=== PATIENT | female | born 1965 | race Caucasian/White ===

== ENCOUNTER 2023-10-29 11:17 | Emergency (ER) | payer OTHER, BC ==
[~2023-10-29] VITALS: Ht 165.1 cm; Wt 127.3 kg
[2023-10-29 11:43] VITALS: TEMP 98.8
[2023-10-29] MEDS ORDERED: iohexol 300mg/ml 100ml inj. ONE (11:58)
[2023-10-29] MEDS: morphine 2 MG/ML inj. syringe IV PRN (12:05)
[2023-10-29] MEDS: normal saline 1000ml 1,000 ML IV ONE (12:05)
[2023-10-29] MEDS: normal saline 1000ML IV soln IVB ONE (12:06)
[2023-10-29 12:41] LABS: BASOPHILS # (AUTO) 0.1 X10'3 (0-0.2); EOSINOPHILS # (AUTO) 0.1 X10'3 (0-0.9); EOSINOPHILS % (AUTO) 1.3 % (0-6); HEMATOCRIT 43.7 % (35.0-45.0); HEMOGLOBIN 14.8 g/dl (12.0-16.0); LYMPHOCYTES # (AUTO) 1.7 X10'3 (1.1-4.8); LYMPHOCYTES % (AUTO) 21.1 % (21-51); MEAN CORPUSCULAR HEMOGLOBIN 28.3 PG (27.0-31.0); MEAN CORPUSCULAR HGB CONC 33.9 g/dL (33.0-36.5); MEAN CORPUSCULAR VOLUME 83.5 FL (78-98); MEAN PLATELET VOLUME 9.3 FL (7.4-10.4); MONOCYTES # (AUTO) 0.3 X10'3 (0-0.9); MONOCYTES % (AUTO) 3.5 % (2-12); NEUTROPHILS # (AUTO) 5.8 X10'3 (1.8-7.7); NEUTROPHILS % (AUTO) 73.1 % (42-75); PLATELET COUNT 208 X10'3 (140-440); RED BLOOD COUNT 5.23 X10'6 (4.20-5.60)
[2023-10-29 12:51] LABS: APTT 27 SECONDS (22-32); PROTHROMBIN TIME 10.7 SECONDS (9.0-12.0)
[2023-10-29 12:57] LABS: ALBUMIN 3.6 G/DL (3.4-5.0); ANION GAP 7 (8-16); BLOOD UREA NITROGEN 14 MG/DL (7-18); BUN/CREATININE RATIO 17.3 (10.0-20.0); CALCIUM 9.6 MG/DL (8.5-10.1); CHLORIDE 104 MMOL/L (99-107); CREATININE 0.81 MG/DL (0.40-0.90); ETHANOL < 10 MG/DL (<10); GLUCOSE 148 MG/DL (70-104); LIPASE 29 U/L (16-77); SODIUM 140 MMOL/L (135-145); TOTAL CARBON DIOXIDE 28.6 MMOL/L (24-32); eCRCL 69 ML/MIN; eGFR 73 ML/MIN
[2023-10-29 12:58] LABS: POTASSIUM 4.4 MMOL/L (3.5-5.1)
[2023-10-29 13:56] LABS: BILIRUBIN,URINE NEGATIVE (Neg); CLARITY,URINE CLEAR (Clear); COLOR,URINE YELLOW (Yellow); GLUCOSE, URINE NEGATIVE (Neg); KETONES,URINE NEGATIVE (Neg); LEUKOCYTE ESTERASE ,URINE NEGATIVE (Neg); NITRITES, URINE POSITIVE (Neg); OCCULT BLOOD,URINE SMALL (Neg); PROTEIN,URINE NEGATIVE (Neg); UROBILINOGEN,URINE 0.2 E.U/dL (0.2-1.0)
[2023-10-29 14:23] LABS: MUCUS STRANDS MODERATE /LPF (Neg); SQUAMOUS EPITHELIAL CELL,UR MODERATE /LPF (FEW); UA COLLECTION TYPE NON-SPECIFIED
[2023-10-29 14:24] LABS: RBC,URINE 0-2 /HPF (0-2); WBC,URINE 0-4 /HPF (0-4)
[2023-10-29 14:25] LABS: BACTERIA,URINE 2+ /HPF (Neg)
[2023-10-29] MEDS ORDERED: CYCL-1 PO (14:31)
[2023-10-29] MEDS ORDERED: NAPR-56 PO (14:31)
[2023-10-29] MEDS ORDERED: HYDR-3972 PO (14:31)
[2023-10-29] MEDS: morphine 4 MG/ML inj SYRINge IV ONE (14:40)
[2023-10-29] MEDS: cyclobenzaprine 10mg tablet PO ONE (14:40)
[2023-10-29] MEDS: HYDROcodone/acetaminophen 10/325mg tab PO ONE (14:40)
[2023-10-29 14:59] VITALS: BP 135/70; PULSE 72; RESP 16; O2SAT 97
== END 2023-10-29 15:14 | disposition home or self-care (01) ==
LOC: ER 11:19
DX: T14.8XXA Other injury of unspecified body region, initial encounter (principal); M25.562 Pain in left knee; N28.1 Cyst of kidney, acquired; R51.9 Headache, unspecified; M54.2 Cervicalgia; Z79.899 Other long term (current) drug therapy; V89.2XXA Person injured in unspecified motor-vehicle accident, traffic, initial encounter; Y93.89 Activity, other specified; Y92.89 Other specified places as the place of occurrence of the external cause; Y99.8 Other external cause status
CPT/HCPCS: 36415; 70450; 71260; 72125; 73564; 74177; 80048; 80320; 81001; 83690; 84484; 85025; 85610; 85730; 87077; 87088; 87186; 93005; 96361; 96374; 96376; 99285; J2270; J3490; J7030; Q9967